=== PATIENT | female | born 1960 | race Two or more races ===

== ENCOUNTER 2016-04-21 08:58 | Emergency (ER) | payer BC ==
[2016-04-21] MEDS ORDERED: HYDROmorphone INJ* 1 MG/ML CARPUJECT SYRINGE IV SLOW PU ONE ×2 (09:29→10:49)
[2016-04-21 10:40] VITALS: BP 148/52
--- NOTE | 2016-04-21 10:40 | ED ---
Lower Extremity - HPI Summary HPI Summary: 55F w/ PMH of anxiety presents with pain in knee s/p fall. She states that her knee cap is located on the side of her leg. She was wearing clogs when she slipped on the ice and her knee went the opposite way. She denies any numbness or tingling. She is an extreme amount of pain. She denies any previous injury to the knee - History of Current Complaint Chief Complaint: EDExtremityLower Stated Complaint: LT KNEE COMPLAINT Time Seen by Provider: 04/21/16 09:21 - Allergies/Home Medications Allergies/Adverse Reactions: Allergies Allergy/AdvReac Type Severity Reaction Status Date / Time Dextromethorphan Allergy Severe TONGUE Verified 05/31/12 12:10 [From Mucinex DM] SWELLING Guaifenesin [From Mucinex DM] Allergy Severe TONGUE Verified 05/31/12 12:10 SWELLING Yellow Dye [From Mucinex DM] Allergy Severe TONGUE Verified 05/31/12 12:10 SWELLING PMH/Surg Hx/FS Hx/Imm Hx Endocrine/Hematology History: Denies: Hx Diabetes, Hx Systemic Lupus Erythematosus Cardiovascular History: Denies: Hx Congestive Heart Failure, Hx Hypertension GI History: Reports: Other GI Disorders - pain ruq for months intermittent also luq occassional loose stool History: Denies: Hx Dialysis, Hx Renal Disease Musculoskeletal History: Denies: Hx Rheumatoid Arthritis - Cancer History Hx Chemotherapy: No Hx Radiation Therapy: No - Surgical History Surgery Procedure, Year, and Place: hysterectomy ? 2009, Infectious Disease History: No Infectious Disease History: Denies: Traveled Outside the [place] in Last 30 Days - Family History Known Family History: Negative: Cardiac Disease - Social History Alcohol Use: Rare Substance Use Type: Reports: None Smoking Status (MU): Never Smoked Tobacco Review of Systems Negative: Fever Negative: Chest Pain Negative: Shortness Of Breath Positive: Myalgia - left knee pain All Other Systems Reviewed And Are Negative: Yes Physical Exam Triage Information Reviewed: Yes Vital Signs On Initial Exam: Initial Vitals Temp Pulse Resp BP Pulse Ox 97.7 F 58 18 144/66 100 04/21/16 09:00 04/21/16 09:00 04/21/16 09:00 04/21/16 09:00 04/21/16 09:00 Vital Signs Reviewed: Yes Appearance: Positive: Pain Distress Skin: Positive: Warm, Dry Head/Face: Positive: Normal Head/Face Inspection Eyes: Positive: Normal, Conjunctiva Clear ENT: Positive: Normal ENT inspection, Pharynx normal, TMs normal Respiratory/Lung Sounds: Positive: Clear to Auscultation, Breath Sounds Present Cardiovascular: Positive: Normal, RRR Musculoskeletal: Positive: Other - patella located on lateral aspect of knee, resistance to straigthen knee, good pulses, capillary refill <2 secs, - Furlong Coma Scale Coma Scale Total: 15 Procedures - Joint Reduction Joint Reduction Site: knee (L) Conscious Sedation: No Reduction Attempts: 1 Pre-Procedure NV Exam: Yes Post Joint Reduction Film: joint reduced Diagnostics - Vital Signs Vital Signs Temp Pulse Resp BP Pulse Ox 04/21/16 09:56 18 04/21/16 09:00 97.7 F 58 18 144/66 100 - Laboratory Lab Statement: Any lab studies that have been ordered have been reviewed, and results considered in the medical decision making process. - Radiology knee Xray Interpretation: Positive (See Comments) - IMPRESSION: Presumed dislocation of the left knee. Radiology Interpretation Completed By: Radiologist knee postreduction Xray Interpretation: No Acute Changes - IMPRESSION: Reduction of previously identified dislocation of the left knee. Radiology Interpretation Completed By: Radiologist leg/femur Xray Interpretation: No Acute Changes Radiology Interpretation Completed By: Radiologist Lower Extremity Course/Dx - Course Course Of Treatment: 55 F presents with left knee dislocation, obvious deformity on exam, got xray and no fracture, gave dialudid and valium and patient was relaxed enough able to straighten knee and it reduced, xray postreducion and in place, place in knee immbolizer and will have follow up with ortho, patient agrees with plan - Diagnoses Differential Diagnosis/HQI/PQRI: Positive: Dislocation, Fracture (Closed), Sprain, Strain Provider Diagnoses: Dislocation of left knee Discharge - Discharge Plan Condition: Good Disposition: HOME Prescriptions: oxyCODONE/Acetamin 5/325 MG* [Percocet 5/325 TAB*] 1 tab PO Q6H PRN #6 tab MDD 4 PRN Reason: Pain Patient Education Materials: Knee Dislocation (GEN) Referrals: Dino Martell MD [Primary Care Provider] - Antonio Chambers MD [Medical Doctor] - Additional Instructions: Follow up with ortho Keep knee in brace Ice, elevate Take ibuprofen every 6 hours and use narcotic for break through pain Return to ED if develop any new or worsening symptoms
--- NOTE | 2016-04-21 10:47 | RAD ---
Indication: Left leg pain 2 views of the left leg demonstrates presumed dislocation left knee. No fracture is identified. IMPRESSION: Presumed dislocation of the left knee.
[2016-04-21] MEDS ORDERED: Diazepam SYRINGE* 5 MG/ML 2 ML SYRINGE (10 MG total) IV ONE (10:48)
--- NOTE | 2016-04-21 10:51 | RAD ---
Indication: Left leg pain. 2 views of left femur demonstrates no fracture of the femur. The visualized pelvis is unremarkable. IMPRESSION: No fracture of the femur is noted.
--- NOTE | 2016-04-21 10:51 | RAD ---
Indication: Left lower leg pain. 2 views of the left lower leg demonstrates no fracture of tibia or fibula. The patient does have a dislocation in the knee which is incompletely imaged on this study. IMPRESSION: No fracture of the tibia or fibula is noted.
--- NOTE | 2016-04-21 11:40 | RAD ---
Indication: Left knee dislocation. 2 views of the knee demonstrates reduction of the previously identified dislocation of the left knee. Alignment appears satisfactory. IMPRESSION: Reduction of previously identified dislocation of the left knee.
== END 2016-04-21 12:52 | disposition home or self-care (01) ==
LOC: ED 08:58
DX: S83.105A Unspecified dislocation of left knee, initial encounter (principal); W01.0XXA Fall on same level from slipping, tripping and stumbling without subsequent striking against object, initial encounter; Y92.9 Unspecified place or not applicable
CPT/HCPCS: 27550; 96374; 96375; 96376; 99283; J1170; J3360

== ENCOUNTER 2018-08-12 11:27 | Inpatient (IN) | payer BC ==
[2018-08-12] MEDS ORDERED: NS 0.9% 1000 ML** 1,000 ML IV ONE (11:38)
[2018-08-12] MEDS ORDERED: Alteplase* 100 MG VIAL ONE (11:41)
--- NOTE | 2018-08-12 11:49 | ED ---
Neurological HPI - HPI Summary HPI Summary: 57 year old F presenting to [facility] with a chief complaint of sudden onset bilateral arm tingliness and numbess since 10:44 today. Symptoms aggravated by nothing. Symptoms alleviated by nothing. Patient reports bilateral facial tingliness. Patient reports occasional slurred speech which she states is due to dry mouth. She reports fuzzy vision and dizziness upon standing. Patient noted that she had hypertension 110/70 at home. Patient arrived by car with female friend. Patient was seen by ER physician at registration. Patient seen at CT at [address] Hair, neurology, and Jewell, quality improvement coordinator (rn). Code Tu was called 1131. She was brought to CT room at 1135. Patient got CT scan at 1142. CT report was called to Dr. Mendez at 1150. Patient's last known well was 1044. Patient had surgery on her right hand in March 2018. Patient has hx atrial fibrillation but is not taking blood thinners. Patient is sinus rhythm on the monitor. Vital signs while in room: HR 95 bpm, BP 168/99, O2 sat 98% Home Medications Medication Instructions Recorded Confirmed Type Acetaminophen [Tylenol Extra 500 mg PO Q12H PRN 03/24/18 08/12/18 History Strength] Cholecalciferol TAB* [Vitamin D 1,000 unit PO QAM 03/24/18 08/12/18 History TAB*] Ibuprofen 600 mg PO Q6H PRN 03/24/18 08/12/18 History ALPRAZolam TAB* [Xanax TAB*] 0.25 mg PO DAILY PRN 08/12/18 08/12/18 History Metoprolol Succinate XL TAB* 25 mg PO DAILY 08/12/18 08/12/18 History [Toprol XL TAB*] - History of Current Complaint Stated Complaint: POSS STROKE OR HEART ATTACK PER PT Time Seen by Provider: 08/12/18 11:42 Hx Obtained From: Patient, Other: - Dr. Hair, neurology Onset/Duration: Started hours ago - 10:44 today, Still Present Timing: Sudden Onset Aggravating: Nothing Alleviating: Nothing TPA Considered: Yes - Allergy/Home Medications Allergies/Adverse Reactions: Allergies Allergy/AdvReac Type Severity Reaction Status Date / Time dextromethorphan Allergy Severe Tongue Verified 08/12/18 12:47 [From Mucinex DM] Swelling guaifenesin [From Mucinex DM] Allergy Severe Tongue Verified 08/12/18 12:47 Swelling morphine Allergy Severe FELT LIKE Verified 08/12/18 12:47 A STEEL DARRELL GOING INTO CHEST yellow dye Allergy Severe tongue Verified 08/12/18 12:48 swelling Home Medications: Home Medications ALPRAZolam TAB* [Xanax TAB*] 0.125 mg PO DAILY PRN 08/12/18 [History Confirmed 08/12/18] Metoprolol Succinate XL TAB* [Toprol XL TAB*] 12.5 mg PO DAILY 08/12/18 [ History Confirmed 08/12/18] PMH/Surg Hx/FS Hx/Imm Hx Previously Healthy: No Endocrine/Hematology History: Denies: Hx Diabetes, Hx Systemic Lupus Erythematosus Cardiovascular History: Reports: Hx Atrial Fibrillation Denies: Hx Congestive Heart Failure, Hx Pacemaker/ICD GI History: Denies: Other GI Disorders History: Denies: Hx Dialysis, Hx Renal Disease Musculoskeletal History: Reports: Other Musculoskeletal History - R KNEE SURGERY IN THE PAST PRESENTLY RIGHT FINGER Denies: Hx Rheumatoid Arthritis Sensory History: Reports: Hx Contacts or Glasses - GLASSES Denies: Hx Hearing Aid Opthamlomology History: Reports: Hx Contacts or Glasses - GLASSES Neurological History: Reports: Other Neuro Impairments/Disorders - PANIC ATTACKS Psychiatric History: Reports: Hx Anxiety, Hx Depression, Hx Panic Disorder - Cancer History Hx Chemotherapy: No Hx Radiation Therapy: No - Surgical History Surgery Procedure, Year, and Place: hysterectomy 2009. RIGHT KNEE ORTHOSCOPIC 1999. right hand surgery 2019 Hx Anesthesia Reactions: Yes - SEVERE SHAKING AFTER HYSTERECTOMY - Family History Known Family History: Negative: Cardiac Disease - Social History Alcohol Use: Rare Hx Substance Use: No Substance Use Type: Reports: None Hx Tobacco Use: Yes Smoking Status (MU): Former Smoker Have You Smoked in the Last Year: No Review of Systems Positive: Blurred Vision Neurological: Other - bilateral arm tingliness and numbess, bilateral facial tingliness, occasional slurred speech, dizziness All Other Systems Reviewed And Are Negative: Yes Physical Exam - Summary Physical Exam Summary: Appearance: Ill-appearing, no pain distress, well-nourished, hypertensive Skin: Warm, color reflects adequate perfusion, dry Head: Normal Head/Face inspection, atraumatic Eyes: Conjunctiva clear ENT: Normal inspection Neck: Supple, no nodes, no JVD Respiratory: Lungs clear, normal breath sounds, no respiratory distress Cardio: RRR, No murmur, pulses normal, brisk capillary refill Abdomen: Soft, nontender Bowel sounds: Present Musculoskeletal: Strength Intact/ROM intact, no calf tenderness, no edema. Psychological: Normal Neuro: A&O x3, CN II-XII intact, motor function 5/5, sensation intact, cerebellar normal Triage Information Reviewed: Yes Vital Signs Reviewed: Yes Diagnostics - Laboratory Result Diagrams: 08/12/18 11:59 08/12/18 11:59 Lab Statement: Any lab studies that have been ordered have been reviewed, and results considered in the medical decision making process. - Radiology CXR Radiology Interpretation Completed By: Radiologist Summary of Radiographic Findings: NO ACTIVE CARDIOPULMONARY DISEASE IS NOTED. ED physician has reviewed this report. - CT Brain CT Interpretation Completed By: Radiologist Summary of CT Findings: No intracranial mass or hemorrhage is noted. Findings discussed with Dr. Mendez at 11:50 AM. ED physician has reviewed this report. - EKG 1159 Cardiac Rate: NL - [address] Segment: Non-Specific Ectopy: None EKG Comparison: No Significant Change - 05/30/13 Summary of EKG Findings: First degree AV block. Normal IVCT. Normal QTc. Left atrial enlargement. Poor R wave porgression V1-V3. No change from 05/30/13. ED MD has reviewed and interpreted this EKG. NIH Scale - NIH Scale Level of Consciousness: Alert/Keenly Responsive Ask Patient the Month and His/Her Age: Both Correct Ask Pt to Open/Close Eyes and Public Policy Coordinator/Release Non-Paretic Hand: Both Correctly Best Gaze (Only Horizontal Eye Movement): Normal Visual Field Testing: No Visual Loss Facial Paresis-Pt to Smile & Close Eyes or Grimace Symmetry: Normal/Symmetrical Motor Function - Right Arm: Drifts LT 10 seconds Motor Function - Left Arm: No Drift-Holds 10 Seconds Motor Function - Right Leg: No Drift-Holds 10 Seconds Motor Function - Left Leg: No Drift-Holds 10 Seconds Limb Ataxia-Must be out of Proportion to Weakness Present: Absent Sensory (Use Pinprick to Test Arms/Legs/Trunk/Face): Normal Best Language (Describe Picture, Name Items): Some Loss Dysarthria (Read Several Words): Normal Extinction and Inattention: No Abnormality Total Score: 2 Course/Dx - Course Course Of Treatment: Patient medications reviewed this visit. Nurses notes reviewed. Allergies noted. High blood pressure noted. Bloodwork and UAs obtained. Bloodwork was unremarkable except for lactic acid 2.2. CT Brain showed No intracranial mass or hemorrhage. Dr. Hair, neurology, recommends TPA administration. Patient and agree to TPA administration. At 1210, TPA was administered. CXR showed NO ACTIVE CARDIOPULMONARY DISEASE. EKG showed no change from 05/30/13. Spoke with kya Munguia, who agrees to admit patient. The patient will be admitted to kya Munguia. The patient is agreeable to admission. - Diagnoses Provider Diagnoses: CVA (cerebral vascular accident), Neurological deficit present, Received intravenous tissue plasminogen activator (tPA) in emergency department, Aphasia , Lactic acidosis During the Visit The Following Alert/Code Occurred: Code Mae - 11:30 - Physician Notifications Discussed Care Of Patient With: Eva Kelly Time Discussed With Above Provider: 12:17 Instructed by Provider To: Other - kya Munguia, agrees to admit patient - Critical Care Time Critical Care Time: 30-74 min - 30 minutes Discharge - Sign-Out/Discharge Documenting (check all that apply): Patient Departure - Admit Patient Received Moderate/Deep Sedation with Procedure: No - Discharge Plan Condition: Stable Disposition: ADMITTED TO [facility] - Attestation Statements Document Initiated by Scribe: Yes Documenting Scribe: Flory Velasquez Provider For Whom Scribe is Documenting (Include Credential): Paige Perez MD Scribe Attestation: Flory Mccloud, scribed for Paige Perez MD on 08/12/18 at 2021.
[2018-08-12] MEDS ORDERED: ALTEPLASE IV ONE ×2 (12:04)
[2018-08-12 12:06] LABS: ABS Basophils 0.1 10^3/ul (0-0.2); ABS Lymphocytes 2.4 10^3/ul (1.0-4.8); ABS Monocytes 0.4 10^3/ul (0-0.8); ABS Neutrophils 2.5 10^3/ul (1.5-7.7); Eosinophil % 0.7 %; Hematocrit 41 % (35-47); Hemoglobin 13.9 g/dL (12.0-16.0); Lymphocyte % 44.7 %; Mean Corpuscular HGB Conc 34 g/dL (31-36); Mean Corpuscular Hemoglobin 29 pg (27-31); Mean Corpuscular Volume 86 fL (80-97); Mean Platelet Volume 7.6 fL (7.4-10.4); Nucleated Red Blood Cells % 0.1; Platelet Count 329 10^3/uL (150-450); Red Blood Count 4.82 10^6 /uL (3.70-4.87); Red Cell Distribution Width 13 % (10.5-15); White Blood Count 5.5 10^3/uL (3.5-10.8)
[2018-08-12 12:17] LABS: Activated Partial Thrombo Time 33.3 seconds (26.0-38.0)
[2018-08-12 12:23] LABS: Albumin 4.4 g/dL (3.2-5.2); Albumin/Globulin Ratio 1.6 (1-3); BUN/Creatinine Ratio 20.3 (8-20); Calcium 9.6 mg/dL (8.6-10.3); EGFR African American 90.1 (>60); EGFR Non-African American 74.5 (>60); Globulin 2.7 g/dL (2-4); Potassium 3.4 mmol/L (3.5-5.0); Total Bilirubin 0.5 mg/dL (0.2-1.0); Total Protein 7.1 g/dL (6.4-8.9)
[2018-08-12 13:11] LABS: TSH (Thyroid Stimulating Horm) 1.49 mcIU/mL (0.34-5.60)
[2018-08-12] MEDS ORDERED: Acetaminophen TAB* 325 MG PO PRN (13:22)
[2018-08-12 14:30] LABS: Urine Appearance Cloudy; Urine Bacteria Absent (Absent); Urine Bilirubin Negative (Negative); Urine Blood 1+ (Negative); Urine Color Yellow; Urine Glucose Negative (Negative); Urine Ketones Negative (Negative); Urine Nitrite Negative (Negative); Urine Protein Negative (Negative); Urine Red Blood Cell 1+(3-5/hpf) (Absent); Urine Specific Gravity 1.016 (1.010-1.030); Urine Squamous Epithelial Cell Present (Absent); Urine Urobilinogen Negative (Negative); Urine White Blood Cell Trace(0-5/hpf) (Absent)
--- NOTE | 2018-08-12 16:15 | CONS ---
NEUROLOGY CONSULTATION NOTE: DATE OF CONSULT: 08/12/18 CONSULTING PROVIDER: Dr. Paige Perez. REASON FOR CONSULT: Acute stroke. CHIEF COMPLAINT: Numbness and tingling with slurred speech. 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 This was sudden in onset. This started at 10:45 a.m. Her last known well was at 10:44 a.m. She has been feeling off for the past day or 2. She complained to her that she was feeling sick. She does have episodes where she feels palpitation and assumes that she is in atrial fibrillation, but then after minutes and with Valsalva maneuvers, she can convert back to a normal heart rate. The patient has had similar sensation of tongue heaviness in the past that usually resolves, but it has not resolved at this time. En route to the hospital, the patient felt that her symptoms were slightly better, but as soon as she got to the ER, she developed worsening of her slurred speech and paresthesias. CT of the head was obtained. There was no evidence of acute intracranial abnormality. NIH stroke scale was completed and she scored a 2 for numbness on the right side of the face and slurred speech. 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 Prior to administrating that tissue plasminogen activator obtained informed consent. I informed the patient and her that I suspect she may have a stroke, which can potentially become a TIA or with time it can worsen over the next few hours. I explained that the stroke is a blockage of the blood flow to the brain. There is no evidence of bleeding. She has never had any history of stroke or intracranial hemorrhage in the past. She has never had any recent surgeries. She denied any falls. She did not meet any of the exclusions and met the inclusion criteria. The risk of the tPA administration including bleeding in the brain 6.4%, allergic reaction, coma, or 3% were discussed with the patient and her . I also informed them that the probability of success of the tPA where it dissolves a blockage of the blood flow will increase up to 30% if given tPA. Her chance of minimal or no disability from the stroke within 3 months and/or full recovery is higher with tPA, again 30%. Alternative to the procedure include treatment with oxygen and IV fluids. Prognosis if the procedure is not done: Possibility of condition worsening and more permanent damage or even . The patient and consented to receive the tPA within a 3-hour window. The patient's blood pressure upon arriving to the ED was 168/99 and blood pressure by the time administrating the tPA was 151/86. The bolus was administered at 12:09. PAST MEDICAL HISTORY: Atrial fibrillation, anxiety disorder, depression, and questionable heart murmur. PAST SURGICAL HISTORY: Hysterectomy, right knee arthroscopy. MEDICATIONS: 1. Ibuprofen 600 mg every 6 hours as needed. 2. Acetaminophen 500 mg p.o. every 12 hours as needed. 3. Toprol 12.5 mg p.o. daily. 4. Xanax 0.125 mg p.o. daily as needed. She is not taking Xanax in a few weeks. FAMILY HISTORY: Her grandmother suffered from a stroke. There is no direct family history of seizures. 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 She is a former smoker. She quit 24 years ago. She denied any recreational drug use. She rarely drinks alcohol. REVIEW OF SYSTEMS: A 14-point review of systems was obtained and otherwise negative except for what was mentioned in the HPI. PHYSICAL EXAM: Vitals: Temperature of 98, pulse is 71, respiratory rate of 15 , oxygen is 98, blood pressure of 135/80. General: Well-nourished, well- developed female in no acute distress. She is slightly anxious. Head: Normocephalic, atraumatic. Eyes: Conjunctivae/corneas are clear. Neck is supple and symmetrical with no carotid bruit. Lungs are clear to auscultation bilaterally. Cardiovascular: Regular rate and rhythm with mild holosystolic murmur. Extremities: Normal range of motion with no cyanosis. Skin: No skin lesions or laceration. Psych: Affect is broad and normal mood, easy to establish rapport. Neurological Examination: Mental status: Awake, alert and oriented to person, place, time and general circumstances. She has mild dysarthria that does resolve once we provided her with mouth swabs. Cranial Nerves: Normal confrontation testing bilaterally. Pupils are mid range and reactive to light. Normal consensual response. Extraocular muscles are intact. Sensation is intact on the forehead, cheeks, and jaw region bilaterally. She has no facial droop. She is able to hear throughout the history of process. Symmetrical palatal elevation. Normal strength against resistance. Tongue is symmetric and midline with no atrophy or fasciculation. Motor Examination: Right/left no abnormal movements, no pronator drift. Normal bulk and tone throughout. Neck extension 5, shoulder range of motion is full, shoulder abduction is 5/5, both flexion and extension 5/5, wrist flexion and extension 5/5, finger flexion and abduction 5/5. Hip flexion 5/5, abduction 5/5, knee flexion and extension 5/5, ankle dorsi and plantarflexion 5/ 5. Reflexes right/left: Brachioradialis 2/2, biceps 2/2, triceps 2/2, patella 2 /2, ankle 1/1, plantar flexor/flexor. Sensation is slightly reduced on the right hand and forearm, but otherwise normal light touch throughout. Coordination: Normal [id number]-ro-tons and rapid alternating movement. Gait: Slightly unsteady and felt some lightheadedness when standing and when transporting from one stretcher to another. DIAGNOSTIC STUDIES/LAB DATA: WBC of 5.5, hemoglobin of 30, hematocrit of 41, platelet count of 329. Sodium of 139, potassium 3.4, BUN of 60, creatinine of 0.79, glucose of 125, lactic acid is 2.2, vitamin B12 is 753. TSH is 1.49. LDL is 83, total cholesterol of 167. 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 There was a suspicion for acute embolic stroke given her presentation. Her NIH stroke scale was initially 2. It was deemed that given her occupation and potential disability if she has permanent dysarthria, the patient, her , and myself agreed to proceed with IV tPA within a 3 hour window. The patient seems to have tolerated the tPA infusion. The differential diagnosis here is possible of a brainstem syndrome versus transient ischemic attack to the posterior circulation. Her biggest risk factor here is history of paroxysmal atrial fibrillation - not on anticoagulation therapy. 1. Suspect acute embolic stroke versus transient ischemic attack, status post IV tPA. 2. Paroxysmal atrial fibrillation, not on anticoagulation therapy. 3. Hypertensive urgency. 4. History of anxiety and depression. Recommendations: The patient was within the therapeutic window for IV tPA. We did not assess for a large vessel occlusion given the low NIH stroke scale and improving symptoms. We did decide to proceed with IV tPA given the fact that she initially improved, but then had recurrent symptoms and we were concerned about possible stuttering transient ischemic attacks as well as given her occupation, we do not want her to live with chronic dysarthria. Please admit to the ICU for post tPA monitoring for 24 hours. Follow the neuro checks and vitals per post tPA protocol. I have ordered an MRI of the brain, MRA of the head and 2D transthoracic echo as part of the stroke workup to evaluate for any embolic strokes, intracranial vascular disease, or to assess for any atrial or ventricular thrombus or patent foramen ovale. Please place the patient on telemetry. Start the patient on anticoagulation therapy after 24 hours post tPA , that is if the repeat CT of head show no evidence of intracranial hemorrhage. The patient will need statin therapy. Permissive blood pressure control with goal systolic blood pressure range between 120 to less than 180. PT/OT/EMPLOYEE BENEFITS DIRECTOR evaluate and treat. Please perform a bedside swallow evaluation. I discussed primary and secondary stroke prevention and education with the patient and her spouse. Please do not place a urinary catheter unless there is evidence of urinary retention. VTE prophylaxis with SCDs as the patient should not be on any anticoagulation therapy for the next 24 hours. Please note that her CHADS2- VASc score for atrial fibrillation stroke risk is 4, which the stroke risk was 4.8% - 6.7% risk of stroke TIA or systemic embolization per year. Therefore, the recommendation is that she should be on anticoagulation therapy in the near future. I will sign out to Dr. Daljit Walker who will follow the patient this weekend. TIME SPENT: I spent a total of 60 minutes of critical care time interviewing the patient, examining the patient, education and counseling, and discussing the risks, benefits and alternative to tPA therapy, interpreting the CT head results, and administrating tPA for suspected acute stroke. [id number]/[facility] #: [id number] ROSALINDA
[2018-08-12] MEDS ORDERED: ALPRAZolam TAB* 0.25 MG PO ONE (16:29)
[2018-08-12] MEDS ORDERED: Potassium Chlor TAB* 20 MEQ TAB.ER PO ONE (16:36)
--- NOTE | 2018-08-12 16:56 | ECHO ---
*[facility]* [place] [address] Fax #: [phone] Transthoracic Echocardiogram Patient: Kun, Height: 65 in / Maureen 165.1 cm : 1960 Weight: 198.6 lb / Study Date: 08/12/2018 90.3 kg Age: 57 BP: 151 / 86 Gender: F BMI/BSA: 33.1 kg/m^2 HR: 60 bpm / 1.97 m^2 *Salvager: * Misti Voss [facility] *Referring Physician: * Darvin Hair *Reading Physician: Darrell Sanchez MD Indications: TIA. History: Atrial fibrillation. Risk factors: Former tobacco use. Conclusions Summary: 1. Left ventricle: Systolic function is normal. The estimated ejection fraction is 60-65%. 2. Atrial septum: Bubble study was negative 3. Mitral valve: There is mild regurgitation. 4. Aortic valve: There is mild regurgitation. 5. Tricuspid valve: There is trace to mild regurgitation. Study data: Transthoracic echocardiogram. Procedure: Transthoracic echocardiography was performed. Image quality was fair. A bubble study was performed. Images 59 and 60. Complete 2D, spectral Doppler, and color flow Doppler. Location: Emergency department. Patient status: Inpatient. Patient room number: ED-17. No prior study is available for comparison. Rhythm: Normal sinus rhythm. Findings Left ventricle: The cavity size is normal. Wall thickness is normal. Systolic function is normal. The estimated ejection fraction is 60-65%. Wall motion is normal; there are no regional wall motion abnormalities. There is no consistent Doppler evidence of clinically significant diastolic dysfunction. Right ventricle: The cavity size is normal. Systolic function is normal. Left atrium: The atrium is normal in size. Right atrium: The atrium is normal in size. Atrial septum: Bubble study was negative Mitral valve: The leaflets are mildly thickened. There is no evidence of stenosis. There is mild regurgitation. Aortic valve: The valve is trileaflet. The leaflets are mildly thickened. There is no evidence of stenosis. There is mild regurgitation. Tricuspid valve: The leaflets are normal thickness. There is no evidence of stenosis. There is trace to mild regurgitation. Pulmonic valve: The leaflets are normal thickness. There is no evidence of stenosis. There is trace regurgitation. Aorta: Ascending aorta: The ascending aorta is appears normal. Aortic arch: The aortic arch is appears normal. The aortic root is not dilated. Pericardium: A prominent pericardial fat pad is present. There is no pericardial effusion. Pulmonary arteries: The main pulmonary artery is normal-sized. Systemic veins: Inferior vena cava: The vessel is normal in size. The respirophasic diameter changes are in the normal range (>= 50%). Measurements Left ventricle Value Ref Aortic valve Value Ref SON, LAX 4.1 cm 3.8 - 5.2 Jorge diam, ED 1.6 cm ---- ESD, LAX 2.6 cm 2.2 - 3.5 Peak v, S 1.82 m/sec ---- FS, LAX 38 % 27 - 45 VTI, S 41.7 cm ---- PW, ED, LAX 0.9 cm 0.6 - 0.9 Mean grad, S 7.0 mm Hg ---- FS 38 % 27 - 45 Peak grad, S 13.0 mm Hg ---- PW, ED 0.9 cm 0.6 - 0.9 LVOT/AV, VTI ratio 0.65 ---- E', lat jorge, TDI (L) 6.3 cm/sec >=10.0 AR peak v 1.15 m/sec - --- E/e', lat jorge, 11 AR decel 169 cm/s^2 ---- TDI AR decel time 683 ms ---- E', med jorge, TDI 7.1 cm/sec >=7.0 AR PHT 198 ms - --- E/e', med jorge, 9 AR peak grad 5 mm Hg ---- TDI E', avg, TDI 6.7 cm/sec Mitral valve Value Ref E/e', avg, TDI 10 <=14 Peak E 0.67 m/sec - --- Peak A 0.78 m/sec ---- LVOT Value Ref Decel time 173 ms ---- Peak edith, S 1.13 m/sec Peak E/A ratio 0.9 ---- VTI, S 27.0 cm Peak grad, S 5 mm Hg Pulmonic valve Value Ref Mean grad, S 2 mm Hg Peak v, S 1.12 m/sec ---- Peak grad, S 5.0 mm Hg ---- Ventricular septum Value Ref IVS, ED 0.9 cm 0.6 - 0.9 Aortic root Value Ref Root diam 2.6 cm <4.1 Right ventricle Value Ref SON, LAX 2.8 cm Ascending aorta Value Ref AAo AP diam, S 3.5 cm ---- Left atrium Value Ref AP dim, ES 2.80 cm 2.70 - Aortic arch Value Ref 3.80 Arch diam 2.2 cm ---- ML dim, A4C 5.0 cm SI dim, A4C 4.9 cm Decending aorta Value Ref Vol/bsa, ES, 1-p 32 ml/m^2 11 - 40 Ninfa peak edith 0.54 m/sec ---- A4C Vol/bsa, ES, A/L 25 ml/m^2 16 - 34 Inferior vena cava Value Ref Diam 2.1 cm ---- Right atrium Value Ref SI dim, ES 5.1 cm 3.4 - 5.3 ML dim, ES, A4C 4.1 cm 2.6 - 4.4 SI dim, ES, A4C 5.1 cm 3.4 - 5.3 Estimated RAP 3 mm Hg Legend: (L) and (H) janeth values outside specified reference range. Prepared and electronically signed by Darrell Lopez MD 08/12/2018 16:56
--- NOTE | 2018-08-12 19:57 | HP ---
CC: Dr. Conway; Dr. Hair * HISTORY AND PHYSICAL: DATE OF ADMISSION: 08/12/18 PROVIDER: Rhea Devi NP. PRIMARY CARE PROVIDER: Dr. Conway. ATTENDING PHYSICIAN: Dr. Eva Kelly.* (DICTATED BY RHEA DEVI NP) CHIEF COMPLAINT: Slurred speech, expressive aphasia. HISTORY OF PRESENT ILLNESS: Ms. Tristan is a 57-year-old female with past medical history significant for atrial fibrillation, heart murmur, anxiety and depression who presented to the emergency room with concerns of having a stroke. The patient reports that at approximately 10:45 this morning she developed slurred speech and was unable to get her words out. She felt like her speech was garbled. She also reported tingling in her hands, her palms being sweaty, and tingling in her jaw and face. She reports that her tongue felt swollen and that it felt like she was "tripping over her words." She also reported during this episode that she felt general fogginess with her thinking. She denied any fever, chills, recent illness, or sick contacts. Denies any chest pain or edema, cough, hemoptysis. She did report some shortness of breath with the episode. She denied any nausea, vomiting, diarrhea, abdominal pain, hematuria, or dysuria. She reported generalized weakness with the episode. No significant reported weakness on either side. She did report that her tongue felt swollen, but denied any difficulty swallowing. Denies any rashes, lesions, or open sores. Denies psychosis. She does have a history of anxiety. While in the emergency room, a mary beth dejesus was called. She was seen by Dr. Hair from neurology. The patient had a stat CT of the head that did not show any acute intracranial abnormality or bleeding. The patient was a candidate for tPA and did receive tPA in the emergency room under Dr. Hair's direction. Due to the concerns with CVA, we were asked to see and evaluate the patient for admission. PAST MEDICAL HISTORY: 1. Atrial fibrillation. 2. Heart murmur. 3. Anxiety. 4. Depression. PAST SURGICAL HISTORY: 1. Hysterectomy. 2. Right pinky finger repair. HOME MEDICATIONS: Include: 1. Metoprolol succinate 12.5 mg p.o. daily. 2. Tylenol 500 mg as needed for pain. 3. Alprazolam 0.25 mg half a tab as needed at bedtime. FAMILY HISTORY: The patient reports mother had a history of an [place]. Mother with diabetes. No reported history of cancer. SOCIAL HISTORY: The patient quit smoking approximately 24 years ago. Prior to that, she smoked a pack to a pack and a half a day for 24 years. She reports rare alcohol use. Denies any illicit drug use. 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 Surrogate decision maker in the event she is unable to make her own decisions is her . She is a full code. REVIEW OF SYSTEMS: An 11-point review of systems was completed. All pertinent positives are mentioned in the HPI. Otherwise, were negative. PHYSICAL EXAMINATION GENERAL: At this time, Ms. Tristan is a 57-year-old female. She is alert and oriented, resting on the stretcher in the emergency room. She does not appear to be in any acute distress. VITAL SIGNS: Blood pressure 132/80, heart rate is 56, respirations 16, O2 saturation 98%, temperature was 99.1. HEENT: Head is atraumatic, normocephalic. Eyes: EOMs are intact. Sclerae anicteric and not pale. Oral mucosa appeared to be moist. NECK: Supple. LUNGS: Clear to auscultation bilaterally. No wheezes, rales, or rhonchi. CARDIAC: S1, S2. Regular rate and rhythm. No rubs or gallops. ABDOMEN: Obese, soft, nontender. Bowel sounds are present x4. MUSCULOSKELETAL: She is able to move all 4 extremities with 5/5 strength. There is no clubbing or cyanosis. Pedal pulses are +2 bilaterally. NEUROLOGIC: She is awake, alert, oriented x3. Speech is clear. Cranial nerves II through XII are grossly intact. There is no pronator drift. Leg strength is equal. Push-pull is intact. Dhurdl-pb-bhlo is intact. Sensation is intact to all 4 extremities. Smile is equal. Tongue is midline. There is no facial asymmetry. SKIN: Intact. DIAGNOSTIC STUDIES/LAB DATA: WBCs are 5.5, RBCs 4.82, hemoglobin 13.9, hematocrit 41, platelet count 329. INR was 1.00, aPTT was 33.3. Sodium 139, potassium 3.4, chloride 105, carbon dioxide was 25, anion gap 9, BUN 16, creatinine 0.79, glucose was 125, lactic acid was 2.2, calcium 9.6. Total bili was 0.50, ASTs were 18, ALTs were 19, alkaline phosphatase was 47. Troponin was 0.00. Cholesterol 167, LDL was 83, HDL was 57. TSH was 1.49. Urine: Color was yellow, appearance was cloudy, pH was 5.0, specific gravity 1.016, urine protein and ketones were negative, blood was 1+; nitrites, bilirubin, urobilinogen and leukocyte esterase were all negative; urine wbc's were trace, rbc's 1+, squamous epithelial cells were present, bacteria was absent, and glucose was negative. She had a CT of the brain, radiologist's impression: No acute intracranial mass or hemorrhage was noted. She had a chest x-ray, radiologist's impression: No active cardiopulmonary disease. She had an electrocardiogram, which showed sinus arrhythmia at a rate of 84 with a prolonged WI. ASSESSMENT AND PLAN: Ms. Tristan is a 57-year-old female who presented to the emergency room with complaints of slurred and garbled speech with hand tingling and facial tingling, who was a code dejesus in the emergency room and received tPA. Neurology was consulted. The patient will be placed in the ICU. 1. Slurred speech. The patient will be placed in the ICU. She is status post tPA. Follow current tPA protocol for vital signs and neurological checks. She will have a repeat CT of the brain tomorrow at 11:30. She will have an MRI and MRA of the brain that is currently pending. She will have transthoracic echocardiogram with bubble study. Statin therapy, aspirin therapy will be initiated per neurology's recommendations. 2. Elevated lactic acid. The patient does not appear to have an infectious process present. We will repeat a lactic acid. I feel this could be related to hypoperfusion. 3. Hypokalemia. The patient did have a potassium level of 3.4. We will repeat a BMP in the a.m. I will give her 40 mEq potassium p.o. 4. Atrial fibrillation. The patient will continue on metoprolol 12.5 mg p.o. daily as she does have a history of atrial fibrillation, not currently on anticoagulation, currently in sinus rhythm. 5. Anxiety and depression. The patient can have alprazolam 0.125 mg as needed for anxiety. 6. Diet. The patient can have a heart-healthy diet after her dysphagia screen. 7. DVT prophylaxis. The patient had tPA. No chemical or mechanical DVT prophylaxis at this time due to the recent tPA. 8. Disposition. The patient will be placed in the ICU. 9. Code status. She is a full code. TIME SPENT: Time spent on this admission was approximately 60 minutes, greater than half that time was spent at the bedside reviewing events leading thus far to her hospitalization, performing physical exam, and reviewing my plan of care. I have discussed this with my attending, Dr. Eva Kelly; she is in agreement with my plan. RHEA DEVI, EMILIANO [id number]/CPS #: [id number] ROSALINDA
[2018-08-13] MEDS ORDERED: Melatonin 3 MG TAB PO PRN (00:01)
[2018-08-13] MEDS ORDERED: ALPRAZolam TAB* 0.25 MG PO ONE ×2 (00:30→10:05)
[2018-08-13 05:51] LABS: ABS Basophils 0.1 10^3/ul (0-0.2); ABS Eosinophils 0.1 10^3/ul (0-0.6); ABS Lymphocytes 2.6 10^3/ul (1.0-4.8); ABS Monocytes 0.5 10^3/ul (0-0.8); Hematocrit 37 % (35-47); Hemoglobin 12.5 g/dL (12.0-16.0); Lymphocyte % 41.5 %; Mean Corpuscular HGB Conc 34 g/dL (31-36); Mean Corpuscular Hemoglobin 29 pg (27-31); Mean Corpuscular Volume 86 fL (80-97); Mean Platelet Volume 7.5 fL (7.4-10.4); Platelet Count 271 10^3/uL (150-450); Red Blood Count 4.31 10^6 /uL (3.70-4.87); Red Cell Distribution Width 13 % (10.5-15); White Blood Count 6.3 10^3/uL (3.5-10.8)
[2018-08-13 06:15] LABS: BUN/Creatinine Ratio 19.7 (8-20); Calcium 8.9 mg/dL (8.6-10.3); EGFR African American 110.9 (>60); EGFR Non-African American 91.7 (>60); Potassium 3.7 mmol/L (3.5-5.0)
[2018-08-13] MEDS ORDERED: Potassium Chlor TAB* 20 MEQ TAB.ER PO ONE (08:15)
[2018-08-13] MEDS ORDERED: Metoprolol Succinate XL TAB* 25 MG PO SCH (09:00)
--- NOTE | 2018-08-13 11:17 | PN ---
Subjective Date of Service: 08/13/18 Length of Stay: 1 Days Interval History: No new events overnight. No new neurologic symptoms. Her symptoms have resolved. No palpitations or chest pain. Doing well overall Studies: Echo: LV: Systolic fxn normal. EF 60-65%. Bubble negative Neck MRA: No significant stenosis MRA Brain: Negative MRI Brain: Negative for acute stroke. Non-specific punctate change in left frontal lobe Objective Active Medications: Acetaminophen (Tylenol Tab*) 650 mg PO Q4H PRN PRN Reason: FEVER/PAIN Metoprolol Succinate (Toprol Xl Tab*) 12.5 mg PO DAILY DEBBY Last Admin: 08/13/18 09:12 Dose: 12.5 mg Vital Signs 08/12/18 08/12/18 08/12/18 11:30 11:52 12:00 Temperature Pulse Rate 113 97 95 Respiratory 15 15 Rate Blood Pressure 179/85 168/99 (mmHg) O2 Sat by Pulse 98 99 100 Oximetry 08/12/18 08/12/18 08/12/18 12:01 12:02 12:19 Temperature 98 F Pulse Rate 97 88 81 Respiratory 21 16 16 Rate Blood Pressure 151/86 151/86 143/85 (mmHg) O2 Sat by Pulse 100 99 97 Oximetry 08/12/18 08/12/18 08/12/18 12:22 12:52 13:00 Temperature Pulse Rate 67 60 62 Respiratory 15 15 18 Rate Blood Pressure 135/80 153/90 (mmHg) O2 Sat by Pulse 98 94 93 Oximetry 08/12/18 08/12/18 08/12/18 13:22 13:23 13:52 Temperature Pulse Rate 73 78 54 Respiratory 20 17 14 Rate Blood Pressure 187/84 154/79 132/83 (mmHg) O2 Sat by Pulse 100 100 96 Oximetry 08/12/18 08/12/18 08/12/18 14:00 14:22 14:52 Temperature 97.4 F Pulse Rate 58 57 57 Respiratory 19 17 14 Rate Blood Pressure 160/76 153/77 (mmHg) O2 Sat by Pulse 96 95 95 Oximetry 08/12/18 08/12/18 08/12/18 15:00 15:03 15:07 Temperature Pulse Rate 53 Respiratory 14 18 13 Rate Blood Pressure 161/98 (mmHg) O2 Sat by Pulse 96 Oximetry 08/12/18 08/12/18 08/12/18 15:10 15:15 15:30 Temperature 99.1 F Pulse Rate 56 54 Respiratory 16 16 14 Rate Blood Pressure 132/80 168/74 (mmHg) O2 Sat by Pulse 98 98 Oximetry 08/12/18 08/12/18 08/12/18 15:49 16:00 16:01 Temperature Pulse Rate 57 64 63 Respiratory 16 21 14 Rate Blood Pressure 155/75 173/71 (mmHg) O2 Sat by Pulse 97 97 98 Oximetry 08/12/18 08/12/18 08/12/18 16:17 16:30 16:35 Temperature Pulse Rate 69 94 Respiratory 15 16 16 Rate Blood Pressure 168/89 (mmHg) O2 Sat by Pulse 100 100 Oximetry 08/12/18 08/12/18 08/12/18 18:00 18:03 18:11 Temperature Pulse Rate 55 53 Respiratory 16 16 Rate Blood Pressure 147/87 (mmHg) O2 Sat by Pulse 95 97 Oximetry 08/12/18 08/12/18 08/12/18 18:30 19:00 19:01 Temperature 98.6 F Pulse Rate 58 50 60 Respiratory 20 16 20 Rate Blood Pressure 152/107 140/74 (mmHg) O2 Sat by Pulse 96 96 96 Oximetry 08/12/18 08/12/18 08/12/18 19:15 19:30 19:45 Temperature Pulse Rate 74 69 62 Respiratory 15 20 18 Rate Blood Pressure 158/81 (mmHg) O2 Sat by Pulse 96 98 97 Oximetry 08/12/18 08/12/18 08/12/18 20:00 20:15 20:30 Temperature 98.6 F Pulse Rate 57 70 68 Respiratory 18 24 13 Rate Blood Pressure (mmHg) O2 Sat by Pulse 97 97 97 Oximetry 08/12/18 08/12/18 08/12/18 20:31 20:45 21:00 Temperature Pulse Rate 61 61 53 Respiratory 16 19 20 Rate Blood Pressure 138/73 139/93 (mmHg) O2 Sat by Pulse 95 98 98 Oximetry 08/12/18 08/12/18 08/12/18 21:15 21:30 21:45 Temperature Pulse Rate 58 63 56 Respiratory 21 18 13 Rate Blood Pressure 127/84 (mmHg) O2 Sat by Pulse 98 98 98 Oximetry 08/12/18 08/12/18 08/12/18 22:00 22:01 22:15 Temperature Pulse Rate 55 57 48 Respiratory 17 18 12 Rate Blood Pressure 148/66 (mmHg) O2 Sat by Pulse 97 95 97 Oximetry 08/12/18 08/12/18 08/12/18 22:30 22:45 22:54 Temperature Pulse Rate 49 47 46 Respiratory 17 17 17 Rate Blood Pressure 114/56 (mmHg) O2 Sat by Pulse 96 97 96 Oximetry 08/12/18 08/12/18 08/12/18 23:00 23:15 23:19 Temperature Pulse Rate 53 44 45 Respiratory 17 16 16 Rate Blood Pressure 112/47 (mmHg) O2 Sat by Pulse 98 96 96 Oximetry 08/12/18 08/12/18 08/13/18 23:30 23:45 00:00 Temperature 98.9 F Pulse Rate 47 46 50 Respiratory 17 15 14 Rate Blood Pressure 120/52 (mmHg) O2 Sat by Pulse 96 96 97 Oximetry 08/13/18 08/13/18 08/13/18 00:15 00:30 00:45 Temperature Pulse Rate 53 45 46 Respiratory 10 15 14 Rate Blood Pressure (mmHg) O2 Sat by Pulse 95 96 98 Oximetry 08/13/18 08/13/18 08/13/18 01:00 01:15 01:18 Temperature Pulse Rate 47 50 Respiratory 15 18 19 Rate Blood Pressure 140/69 (mmHg) O2 Sat by Pulse 97 95 Oximetry 08/13/18 08/13/18 08/13/18 01:30 01:45 02:00 Temperature Pulse Rate 60 54 51 Respiratory 21 19 16 Rate Blood Pressure (mmHg) O2 Sat by Pulse 96 96 96 Oximetry 08/13/18 08/13/18 08/13/18 02:01 02:15 02:30 Temperature Pulse Rate 49 47 55 Respiratory 13 15 15 Rate Blood Pressure 125/62 (mmHg) O2 Sat by Pulse 96 96 96 Oximetry 08/13/18 08/13/18 08/13/18 02:45 03:00 03:01 Temperature Pulse Rate 53 55 63 Respiratory 14 17 14 Rate Blood Pressure 113/60 (mmHg) O2 Sat by Pulse 96 96 98 Oximetry 08/13/18 08/13/18 08/13/18 03:15 03:30 03:44 Temperature Pulse Rate 55 56 Respiratory 16 19 16 Rate Blood Pressure (mmHg) O2 Sat by Pulse 95 98 Oximetry 08/13/18 08/13/18 08/13/18 03:45 03:48 04:00 Temperature 97.9 F Pulse Rate 43 43 Respiratory 13 14 Rate Blood Pressure 114/74 (mmHg) O2 Sat by Pulse 96 95 Oximetry 08/13/18 08/13/18 08/13/18 04:15 04:30 04:45 Temperature Pulse Rate 44 46 50 Respiratory 14 16 14 Rate Blood Pressure (mmHg) O2 Sat by Pulse 94 95 95 Oximetry 08/13/18 08/13/18 08/13/18 05:00 05:15 05:30 Temperature Pulse Rate 48 55 50 Respiratory 15 20 15 Rate Blood Pressure 117/64 (mmHg) O2 Sat by Pulse 96 96 96 Oximetry 08/13/18 08/13/18 08/13/18 05:45 05:48 06:00 Temperature Pulse Rate 60 46 Respiratory 16 15 14 Rate Blood Pressure 113/64 (mmHg) O2 Sat by Pulse 98 97 Oximetry 08/13/18 08/13/18 08/13/18 06:15 06:30 06:45 Temperature Pulse Rate 44 45 46 Respiratory 14 23 17 Rate Blood Pressure (mmHg) O2 Sat by Pulse 96 98 96 Oximetry 08/13/18 08/13/18 08/13/18 07:00 07:15 07:30 Temperature Pulse Rate 45 44 51 Respiratory 15 17 11 Rate Blood Pressure 120/62 (mmHg) O2 Sat by Pulse 95 96 98 Oximetry 08/13/18 08/13/18 08/13/18 07:45 08:00 08:15 Temperature 97.3 F Pulse Rate 46 51 48 Respiratory 17 16 12 Rate Blood Pressure 137/64 (mmHg) O2 Sat by Pulse 95 99 97 Oximetry 08/13/18 08/13/18 08/13/18 08:30 08:45 09:00 Temperature Pulse Rate 43 72 50 Respiratory 13 23 16 Rate Blood Pressure 152/73 (mmHg) O2 Sat by Pulse 96 97 97 Oximetry 08/13/18 08/13/18 08/13/18 09:15 09:30 09:45 Temperature Pulse Rate 58 54 58 Respiratory 23 17 14 Rate Blood Pressure (mmHg) O2 Sat by Pulse 97 97 99 Oximetry 08/13/18 08/13/18 08/13/18 10:00 10:15 10:30 Temperature Pulse Rate 53 56 68 Respiratory 13 14 20 Rate Blood Pressure (mmHg) O2 Sat by Pulse 98 100 96 Oximetry 06/01/19 06/01/19 10:45 10:48 Temperature Pulse Rate 50 Respiratory 18 15 Rate Blood Pressure (mmHg) O2 Sat by Pulse 96 Oximetry Intake and Output Last 24 Hours 08/11/18 08/12/18 08/13/18 08/14/18 06:59 06:59 06:59 06:59 Intake Total 848.6 150 Output Total 1825 750 Balance -976.4 -600 Weight 194 lb 7.67 oz Intake: IV Fluids 128.6 NS (0.9%) 55 Oral 720 150 Output: Urine 1825 750 Oxygen Devices in Use Now: None Neurology Exam: General: Well nourished, well developed, and in no acute distress HEENT: Normocephalic/atraumatic, sclera anicteric, mucous membranes moist Neck: Supple Chest: Clear to auscultation bilaterally Cardiovascular: Regular rate and rhythm without murmurs, rubs, gallops Abdomen: Soft, non-tender/non-distended Extremities: No clubbing, cyanosis, or edema Neurological Findings: Awake, alert, and oriented to person, place, and time. Speech: fluent without dysarthria, repetition intact Cranial Nerve: PERRL, EOM intact, VFF, no nystagmus, face symmetric bilaterally , facial sensation intact, hearing intact to finger rub bilaterally, palate elevates symmetrically, tongue midline, SCM and Trapezius s/s. Motor: 5/5 throughout, proximal and distal extremities x4 tone/bulk normal, no drift Sensation: intact to LT/PP bilaterally upper and lower extremities Deep Tendon Reflex: 2+ symmetric in the upper/lower extremities, Babinski - down going Finger to nose, rapid alternating movements intact without tremor, no dysdiadochokinesia Result Diagrams: 08/13/18 05:30 08/13/18 05:30 Microbiology and Other Data: Microbiology 08/12/18 15:20 Nasal Screen MRSA (PCR) - Final Nasal Mrsa Not Detected Assessment/Plan 57 year old with a history of paroxysmal A.fib, anxiety and depression with previous episodes of tongue heaviness in the past, presented with similar symptoms as well as R>L tingling in the face/arms and speech difficulties which waxed and waned several times Concern for TIA. S/P tPA yesterday. NIH 2. --[id number]: --Score 3 for female (1+), history of previous events (has had tongue heaviness in the past) (2+): Moderate-High risk --Stroke risk 3.2% per year in >90,000 patients --4.6% risk of stroke/TIA/systemic embolism off anticoagulation --Workup at this point is negative for acute stroke but cannot rule out TIA although unusual presentation. The speech difficulties in particular, in light of the history of [email or web address], are worrisome. If we assume her presentation was TIA, then I think that the benefits of full anticoagulation outweigh the risks. --Plan for repeat CT at noon: If no evidence of hemorrhage, ok to start ASA 81mg --Assuming no bleeding or new strokes, and given [id number] score of 3, I am inclined to start the patient on NOAC at 48-72 hours after tPA --Continue BP control --Continue Statin with goal LDL < 70 --Watch for developing diabetes in the future --Follow up with cardiology regarding [email or web address] --Plan to transfer to floor if CT is negative, watch on Tele for 24 hours and then if stable, can likely go home tomorrow. She can follow up witih me in 8- 12 weeks.
--- NOTE | 2018-08-13 15:20 | PN ---
Subjective Date of Service: 08/13/18 Interval History: Had tPA yesterday at 11:30 AM. Had minor recurrence of facial and hand tingling that she states she thinks is related to anxiety, as it improved with benzos yesterday. Denies weakness, slurred speech, fumbling with objects, or facial droop. Pt expresses reluctance to now take medications (so far has been recommended to take anticoagulation, aspirin, and statin). States she does not want to have the medication cascade start now. Extensively discussed indications for these medications, along with benefits and risks. Objective Active Medications: Acetaminophen (Tylenol Tab*) 650 mg PO Q4H PRN PRN Reason: FEVER/PAIN Last Admin: 08/13/18 14:23 Dose: 650 mg Aspirin (Aspirin 81 Mg Chew Tab*) 81 mg PO DAILY [facility] Atorvastatin Calcium (Lipitor*) 20 mg PO 1700 [facility] Metoprolol Succinate (Toprol Xl Tab*) 12.5 mg PO DAILY [facility] Last Admin: 08/13/18 09:12 Dose: 12.5 mg Vital Signs - 8 hr 08/13/18 08/13/18 08/13/18 07:30 07:45 08:00 Temperature 97.3 F Pulse Rate 51 46 51 Respiratory 11 17 16 Rate Blood Pressure 137/64 (mmHg) O2 Sat by Pulse 98 95 99 Oximetry 08/13/18 08/13/18 08/13/18 08:15 08:30 08:45 Temperature Pulse Rate 48 43 72 Respiratory 12 13 23 Rate Blood Pressure (mmHg) O2 Sat by Pulse 97 96 97 Oximetry 08/13/18 08/13/18 08/13/18 09:00 09:15 09:30 Temperature Pulse Rate 50 58 54 Respiratory 16 23 17 Rate Blood Pressure 152/73 (mmHg) O2 Sat by Pulse 97 97 97 Oximetry 08/13/18 08/13/18 08/13/18 09:45 10:00 10:15 Temperature Pulse Rate 58 53 56 Respiratory 14 13 14 Rate Blood Pressure (mmHg) O2 Sat by Pulse 99 98 100 Oximetry 08/13/18 08/13/18 08/13/18 10:30 10:45 10:48 Temperature Pulse Rate 68 50 Respiratory 20 18 15 Rate Blood Pressure (mmHg) O2 Sat by Pulse 96 96 Oximetry 08/13/18 08/13/18 08/13/18 11:00 11:01 11:15 Temperature Pulse Rate 53 61 52 Respiratory 18 17 11 Rate Blood Pressure 154/77 (mmHg) O2 Sat by Pulse 96 97 98 Oximetry 08/13/18 08/13/18 08/13/18 11:30 11:45 12:00 Temperature 97.6 F Pulse Rate 46 56 50 Respiratory 17 11 15 Rate Blood Pressure (mmHg) O2 Sat by Pulse 94 95 95 Oximetry 08/13/18 08/13/18 08/13/18 12:01 12:42 12:43 Temperature Pulse Rate 50 50 49 Respiratory 16 15 Rate Blood Pressure 113/52 136/72 (mmHg) O2 Sat by Pulse 96 95 96 Oximetry 08/13/18 08/13/18 08/13/18 12:45 13:00 13:01 Temperature Pulse Rate 49 56 56 Respiratory 21 13 19 Rate Blood Pressure 144/86 (mmHg) O2 Sat by Pulse 96 96 96 Oximetry 08/13/18 08/13/18 08/13/18 13:15 13:21 14:00 Temperature Pulse Rate 55 56 Respiratory 22 20 20 Rate Blood Pressure (mmHg) O2 Sat by Pulse 96 96 Oximetry 08/13/18 08/13/18 08/13/18 14:01 14:20 15:00 Temperature Pulse Rate 53 66 57 Respiratory 18 20 18 Rate Blood Pressure 96/50 123/75 124/78 (mmHg) O2 Sat by Pulse 97 96 97 Oximetry Oxygen Devices in Use Now: None Appearance: well appearing, AOx3, interactive, answers questions appropriately, pleasant Eyes: No Scleral Icterus Respiratory: Symmetrical Chest Expansion and Respiratory Effort, Clear to Auscultation Cardiovascular: NL Sounds; No Murmurs; No JVD, RRR Abdominal: NL Sounds; No Tenderness; No Distention Extremities: No Edema Neurological: Alert and Oriented x 3, NL Sensation, NL Gait, NL Muscle Strength and Tone, - - CN 2-12 intact Result Diagrams: 08/13/18 05:30 08/13/18 05:30 Microbiology and Other Data: Microbiology 08/12/18 15:20 Nasal Screen MRSA (PCR) - Final Nasal Mrsa Not Detected Assess/Plan/Problems-Billing 57 year old with a history of paroxysmal A.fib, anxiety and depression with previous episodes of tongue heaviness in the past, presented with similar symptoms as well as R>L tingling in the face/arms and speech difficulties which waxed and waned several times Concern for TIA. S/P tPA yesterday. NIH 2. --[id number]: --Score 3 for female (1+), history of previous events (has had tongue heaviness in the past) (2+): Moderate-High risk --Stroke risk 3.2% per year in >90,000 patients --4.6% risk of stroke/TIA/systemic embolism off anticoagulation --Workup at this point is negative for acute stroke but cannot rule out TIA although unusual presentation. The speech difficulties in particular, in light of the history of Amaury, are worrisome. If we assume her presentation was TIA, then I think that the benefits of full anticoagulation outweigh the risks. --Plan for repeat CT at noon: If no evidence of hemorrhage, ok to start ASA 81mg --Assuming no bleeding or new strokes, and given [id number] score of 3, I am inclined to start the patient on NOAC at 48-72 hours after tPA --Continue BP control --Continue Statin with goal LDL < 70 --Watch for developing diabetes in the future --Follow up with cardiology regarding [email or web address] --Plan to transfer to floor if CT is negative, watch on Tele for 24 hours and then if stable, can likely go home tomorrow. She can follow up tylerih me in 8- 12 weeks.
[2018-08-13 16:33] VITALS: BP 116/76
[2018-08-13] MEDS ORDERED: Atorvastatin* 20 MG TAB PO SCH (17:00)
--- NOTE | 2018-08-13 22:14 | DS ---
CC: Dr. Marsha Conway; Dr. Hair; Dr. Walker * DISCHARGE SUMMARY: DATE OF ADMISSION: 08/12/18 DATE OF DISCHARGE: 08/13/18 PRIMARY CARE PHYSICIAN: Dr. Marsha Conway. PRIMARY DIAGNOSIS: Numbness of unclear etiology. SECONDARY DIAGNOSES: 1. Anxiety. 2. Atrial fibrillation. CONSULTANTS: Neurology, Dr. Hair and Dr. Walker. PROCEDURES: TPA on 08/12/18. DISCHARGE MEDICATIONS: 1. Aspirin 81 mg daily. 2. Atorvastatin 20 mg nightly. 3. Apixaban 5 mg twice a day, to start tomorrow. 4. Alprazolam 0.25 mg at times as needed for anxiety. 5. Metoprolol succinate 12.5 mg daily. HISTORY OF PRESENT ILLNESS: Ms. Tristan is a 57-year-old woman with atrial fibrillation, on anticoagulation; anxiety; heart murmur and depression, who presented to the emergency room with concerns of having a stroke. 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 She felt like her speech was garbled. She also reported tingling in her hands, jaw and face with sweaty palms. She reports her tongue got swollen and she felt like she was "tripping over her words." She also reports that during this episode she felt general fogginess in her thinking. She had no fever or chills, recent illnesses or sick contacts. She had some shortness of breath during this episode, but no chest pain or cough. She had generalized weakness, but no focal weakness or laterality to her weakness. HOSPITAL COURSE: In the emergency room, a Code [place] was called. She was evaluated by Dr. Hair of Neurology and underwent a stat head CT that did not show any acute intracranial abnormality. After an extensive risks and benefits discussion with her and her family, given her history of atrial fibrillation not on anticoagulation, and significant morbidity of untreated embolic stroke, the patient was administered tPA at 11:30 on 08/12/18 and admitted to the ICU for further monitoring. In the ICU, the patient also underwent transthoracic echocardiogram as well as a brain MRI and head and neck MRI which were unremarkable. Her symptoms had entirely resolved after administration of tPA, but she did have recurrence of facial and hand tingling the next morning that she attributed to anxiety and that improved with a small dose of Xanax. The patient was educated extensively on risks and benefits of initiating anticoagulation for her atrial fibrillation and elevated CHADS-VASc score. It was also recommended that she initiate a statin and an aspirin but she seemed reluctant to do so. She did mention that she preferred to speak with her outpatient providers regarding initiation of new medications but that she would pickup driver the prescriptions from her pharmacy. When a head CT was repeated 24 hours after initiation of tPA, it was resulted normal and the patient had preferred to leave the hospital with close outpatient followup. She had no recurrence of atrial fibrillation during this hospitalization. She was noted to have occasionally elevated blood pressures up to systolic in the 150s, which she reports is abnormal for her. So, she was not started on a blood pressure medication. PERTINENT STUDIES AND LABS: Brain CT on presentation without intracranial mass or hemorrhage. Brain CT 24 hours after tPA was without hemorrhage or other acute intracranial abnormality. A brain MRI showed no restriction of diffusion noted with nonspecific punctate areas of the deep white matter changes in the left frontal lobe, no definite hemorrhage noted. A head and neck MRA showed no significant stenosis of the carotid arteries bilaterally and the brain was grossly unremarkable without branch occlusion or aneurysmal dilatation. Transthoracic echocardiogram with left ventricular systolic function normal and EF 60% to 65%. Bubble study was negative. Mitral and aortic valves with mild regurgitation. 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 Emmanuel. She will also follow up with the neurologist she met during admission, Dr. Daljit Walker. She was educated extensively on indications and benefits as well as side effects of medications newly prescribed this admission, and she does express reluctance to take them until she can discuss them further with her family and her outpatient providers. She does understand the risks of not taking her medications as prescribed above. Her and her were educated extensively on the return precautions which include, but are not limited to focal weakness or slurred speech. She is to resume a healthy diet with activity as tolerated. DISPOSITION: Home. CONDITION: Good. TIME SPENT: Approximately 60 minutes was spent on discharge of this patient, more than half of which was spent on care and coordination at bedside for interview and exam. [id number]/[facility] #: [id number] ROSALINDA
[2018-08-14] MEDS ORDERED: Aspirin 81 mg CHEW TAB* 81 MG TAB.CHEW PO SCH (09:00)
== END 2018-08-13 17:42 | disposition home or self-care (01) | DRG 47 ==
LOC: ED 11:27 → ICU 13:22
PROVIDERS: ADMIT Internal Medicine; ATTEND Internal Medicine
DX: G45.9 Transient cerebral ischemic attack, unspecified (principal); I48.0 Paroxysmal atrial fibrillation; R20.0 Anesthesia of skin; F41.9 Anxiety disorder, unspecified; R47.81 Slurred speech; F32.9 Major depressive disorder, single episode, unspecified; E87.6 Hypokalemia; R01.1 Cardiac murmur, unspecified; Z82.49 Family history of ischemic heart disease and other diseases of the circulatory system; Z83.3 Family history of diabetes mellitus; Z87.891 Personal history of nicotine dependence; Z79.1 Long term (current) use of non-steroidal anti-inflammatories (NSAID); Z79.899 Other long term (current) drug therapy; I16.0 Hypertensive urgency
CPT/HCPCS: 36415; 70450; 70544; 70547; 70551; 71045; 80048; 80053; 80061; 81003; 81015; 82607; 83605; 84443; 84484; 85025; 85610; 85730; 86850; 86900; 86901; 87086; 87641; 93005; 93306; 99285; A9270-GY; J2997

== ENCOUNTER → 2019-01-16 | Day surgery (SDC) | payer BC ==
[~2019-01-16] MED LIST: Bupivacaine 0.25% SDV PF* 10 ML VIAL INJ ONE; Bupivacaine 0.5% SDV PF* 30ML VIAL ONE; Cephalexin CAP* 500 MG PO ONE; Lidocaine 1% INJ* 10 MG/ML 30 ML SDV ONE; Lidocaine 1% w EPI 1:200,000* SDV 30 ML VIAL ONE; Sodium Bicarbonate 8.4%* 50 ML SYRINGE ONE; ceFAZolin 2 GM in NS PREMIX(*) 2 GM/100 ML BAG IVPB ONE
--- NOTE | 2019-01-17 03:15 | OP ---
DATE OF OPERATION: 01/16/[address] - [facility] DATE OF : 56 SURGEON: Denilson Gutierrez MD. CITRI[employer] LEAD: KATEY Black ANESTHESIOLOGIST: None. ANESTHESIA: Local only. PRE-OP DIAGNOSIS: Right small finger flexor tendon adhesions and extension contractures of the PIP and DIP joints, very mild. POST-OP DIAGNOSIS: Right small finger flexor tendon adhesions and extension contractures of the PIP and DIP joints, very mild. OPERATIVE PROCEDURE: Flexor tendon tenolysis of the right small finger. INDICATIONS: Maureen is 58 years old. She had a fracture almost a year ago. She has been worked extensively with therapy. She is left with adhesions and she has developed some stiff joint. I told her I may consider releasing the extension contractures, but I thought we should do the flexor tendon tenolysis as well. She agrees and wants to proceed. She understands the need for immediate postoperative therapy and the likelihood of recurrent stiff fingers, she wants to proceed. ESTIMATED BLOOD LOSS: 5 mL. COMPLICATIONS: None. FINDINGS: See above and below. DESCRIPTION OF PROCEDURE: Ms. Tristan was seen in the preoperative holding area. The correct side, site and procedure were identified. We came back to the operating room where the arm was prepped and draped in the usual fashion. A time- out was performed. Please note that in the pre-op area, we had a time- out and I had injected the operative site with 1% buffered lidocaine with epinephrine and little bit of 0.25% Marcaine. After time-out, I went ahead and made a V-shaped incision, raised a radially based flap off of the A1 ava area of the small finger. Dissection was carried down. The A1 ava was incised along its proximal aspect. There was adhesions noted between the tendons, between the tendon and the sheath, between the tendon and the bone. I used a tenolysis knives to release all these adhesions. I had her then flex the finger down. There was improvement, but was still inadequate. I then raised another radially based V-shaped flap over the PIP joint. The A1 ava was opened transversely. I then used tenolysis knife to complete the tenolysis over the proximal phalanx. There was quite a bit of adhesions, but they all were released. I then released some adhesions distally down underneath the A4 ava as well. At this point, the tendons were nice and loose. I had her actively flex the finger down. She came down to almost into a full fist. When she made a full fist was just a bit of residual DIP joint contracture, but it was really mild. I decided there was nothing further to do with regards to contracture release as that would just create more swelling and make it more difficult for her to bend the finger. I went ahead and released the flaps that had been sewn back and closed the skin with 4-0 nylon suture, very low profile dressing was applied with some Tegaderm and Mastisol and some Xeroform, and gauze. She was able to fully flex in the dressing. She was taken to the recovery room in stable condition. Please note, I had used a forearm based tourniquet during the initial portion of the flexor tendon tenolysis probably the first 20 minutes or so. That was set at 200 mmHg. [id number]/[facility] #: [id number] MTDD
== END | disposition home or self-care (01) ==
LOC: OR 07:51
PROVIDERS: ATTEND Orthopaedic Surgery Hand Surgery
DX: M24.541 Contracture, right hand (principal); S62.616S Displaced fracture of proximal phalanx of right little finger, sequela; I48.91 Unspecified atrial fibrillation; F41.8 Other specified anxiety disorders; Z87.891 Personal history of nicotine dependence; Y92.9 Unspecified place or not applicable; F19.21 Other psychoactive substance dependence, in remission; X58.XXXS Exposure to other specified factors, sequela
CPT/HCPCS: A9270-GY; J0690; J2001; J3490

== ENCOUNTER → 2019-02-01 09:34 | Day surgery (SDC) | payer BC ==
[~2019-02-01 09:34] MED LIST changes: +Buffered Lidocaine 1% SYRIN* 1 ML/SYRINGE INTRADERM ONE; -Bupivacaine 0.25% SDV PF* 10 ML VIAL INJ ONE; -Bupivacaine 0.5% SDV PF* 30ML VIAL ONE; -Cephalexin CAP* 500 MG PO ONE; +Dexamethasone IV* 4 MG/ML 1 ML (4 MG) ONE; +DiMENhydriNATE IV* 50 MG/ML VIAL IV PUSH PRN; +Gelfoam 12-7 ADSORBABL SPONGE* 1 EA SPONGE ONE; +Gelfoam Sponge SIZE 100* SPONGE ONE; +HYDROmorphone INJ1* 1 MG/ML SYRINGE IV PRN; +HYDROmorphone INJ1* 1 MG/ML SYRINGE ONE; +Lactated Ringers 1000 ML Bag* 1,000 ML IV SCH; -Lidocaine 1% INJ* 10 MG/ML 30 ML SDV ONE; -Lidocaine 1% w EPI 1:200,000* SDV 30 ML VIAL ONE; +Lidocaine 2% PF * 5 ML VIAL ONE; +Lidocaine 2% w/ EPI 1:200,000* 20 ML SDV VIAL ONE; +Midazolam* 1 MG/ML 2 ML VIAL (2 MG) ONE; +Naloxone* 0.4 MG/ML 1 ML VIAL IV PRN; +Ondansetron INJ* 2 MG/ML VIAL IV PRN; +Ondansetron INJ* 2 MG/ML VIAL ONE; +Oxymetazoline 0.05% NASAL SPR* 15 ML BTL ONE; +Propofol* 10 MG/ML 20 ML BTL ONE; -Sodium Bicarbonate 8.4%* 50 ML SYRINGE ONE; +Triamcinolone Acetonide* 40 MG/ML 1 ML VIAL ONE; -ceFAZolin 2 GM in NS PREMIX(*) 2 GM/100 ML BAG IVPB ONE; +fentaNYL* 50 MCG/ML 2 ML VIAL (100 MCG VIAL) ONE; +oxyCODONE/Acetamin 5/325 MG* TAB ONE; +oxyCODONE/Acetamin 5/325 MG* TAB PO PRN
[2019-02-01] MEDS: fentaNYL* 50 MCG/ML 2 ML VIAL (100 MCG VIAL) IV PRN ×4 (13:18→13:54)
[2019-02-01 17:22] VITALS: BP 152/83
--- NOTE | 2019-02-01 20:15 | OP ---
DATE OF OPERATION: 02/01/19 - [facility] DATE OF : 56 SURGEON: Bharath Ferris MD. PRE-OP DIAGNOSES: Left nasal polyp mass. POST-OP DIAGNOSES: Left nasal polyp mass. OPERATIVE PROCEDURES: Endoscopic excision of left nasal polyp with image guidance. BRIEF HISTORY: This is a 58-year-old presenting with a large nasal mass from the skull base region. DESCRIPTION OF PROCEDURE: The patient was taken to the operating room. The patient was intubated with LMA. Nose was decongested with Afrin placed pledgets. Subsequently, 2% lidocaine with epinephrine was infiltrated in the mass. A 0-degree telescope image guidance system was utilized for navigation. A microshaver was utilized. We initially took a small biopsy and sent it for frozen section. Proceeded to micro shave most of the mass out and then to the medial to the middle turbinate and to the lateral wall of the septum, I was able to get as close to the origin of this mass with unfortunately quite a bit of bleeding and removed it as best as I could without margins. With this in mind, the area was then packed with Gelfoam and subsequently with Gonzalo packs x2. The patient was then awakened, sent to recovery room in stable condition. Instrument and sponge count correct. Blood loss minimal. [id number]/[facility] #: [id number] [facility]ITALSola
== END | disposition home or self-care (01) ==
LOC: OR 09:34
PROVIDERS: ATTEND Otolaryngology
DX: D49.1 Neoplasm of unspecified behavior of respiratory system (principal); J31.0 Chronic rhinitis; J32.0 Chronic maxillary sinusitis; R00.0 Tachycardia, unspecified; F41.8 Other specified anxiety disorders; E55.9 Vitamin D deficiency, unspecified; Z87.891 Personal history of nicotine dependence
CPT/HCPCS: 88271; 88304; 88313; 88331; 88341; 88342; A9270-GY; J1100; J1170; J2250; J2405; J2704; J3010; J3301